=== PATIENT | female | born 1990 | race Caucasian/White ===

== ENCOUNTER 2017-09-26 18:11 | Emergency (ER) | payer OTHER ==
[~2017-09-26] VITALS: Ht 170.2 cm; Wt 61.0 kg
[2017-09-26 18:24] VITALS: BP 110/63; PULSE 67; RESP 16; TEMP 97.9; O2SAT 99
[2017-09-26] MEDS ORDERED: LIDOCAINE 1%/EPINEPHrine 1:100,000 SOLN 20 ML VIAL INFIL ONE (19:30)
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
[2017-09-26] MEDS ORDERED: TETANUS/DIPHTHERIA TOXOID ADULT 0.5 ML VIAL IM ONE (20:15)
[2017-09-26] MEDS ORDERED: DOXY100C PO (20:16)
== END 2017-09-26 20:34 | disposition home or self-care (01) ==
LOC: PHEFT 18:11
DX: S01.01XA Laceration without foreign body of scalp, initial encounter (principal); W22.8XXA Striking against or struck by other objects, initial encounter; Y93.18 Activity, surfing, windsurfing and boogie boarding; Z23 Encounter for immunization
CPT/HCPCS: 12002; 90471; 90714